=== PATIENT | male | born 1995 | race Caucasian/White ===

== ENCOUNTER 2020-11-17 13:29 | Emergency (ER) | payer OTHER ==
[~2020-11-17] VITALS: Ht 175.3 cm; Wt 81.8 kg
[2020-11-17 13:30] VITALS: BP 137/81
[2020-11-17] MEDS ORDERED: LIDOCAINE 5% (LIDODERM) PATCH TD ONE (14:25)
--- NOTE | 2020-11-17 14:55 | REP ---
INDICATION: vert. point tender; ?trauma COMPARISON: None. TECHNIQUE: AP, lateral, and swimmers views. FINDINGS: Alignment and kyphosis is maintained. Vertebral bodies intact. No acute fracture / compression injury or subluxation. No degenerative changes. Paravertebral soft tissues are normal. IMPRESSION: Normal thoracic spine series. <Electronically signed by Froy Roblero > 11/17/20 [id number]
[2020-11-17] MEDS ORDERED: LIDO5DIS41 TOP (15:33)
[2020-11-17] MEDS ORDERED: **NOTE PATIENT COMMENT** MISC XX SCH (21:00)
== END 2020-11-17 16:13 | disposition home or self-care (01) ==
LOC: M ED 13:29
DX: S23.3XXA Sprain of ligaments of thoracic spine, initial encounter (principal); X50.9XXA Other and unspecified overexertion or strenuous movements or postures, initial encounter; Y92.9 Unspecified place or not applicable; Y93.9 Activity, unspecified; Y99.9 Unspecified external cause status